=== PATIENT | female | born 1995 | race Caucasian/White ===

== ENCOUNTER 2016-12-21 21:23 | Emergency (ER) | payer BC ==
[2016-12-21 21:36] VITALS: BP 137/67
[2016-12-21] MEDS ORDERED: Nitrofurantoin Macrocrystals* 50 MG CAP PO ONE (22:14)
[2016-12-21] MEDS ORDERED: Phenazopyridine 200 mg (NF) 200 MG TAB PO ONE (22:14)
[2016-12-21] MEDS ORDERED: Phenazopyridine TAB* 100 MG PO ONE (22:24)
--- NOTE | 2016-12-21 22:24 | UC ---
Complaint Female HPI - HPI Summary HPI Summary: UTI sx starting last night, worsening today: dysuria, frequency, urgency. Denies blood in urine, fever, back pain, or vomiting. Has had 1 UTI in the past , this feels the same. - History Of Current Complaint Chief Complaint: UCGU Stated Complaint: POSS UTI Time Seen by Provider: 12/21/16 21:59 Hx Obtained From: Patient Hx Last Menstrual Period: does not get PCOS ?: No Onset/Duration: Gradual Onset, Lasting Hours Timing: Constant Severity Initially: Mild Severity Currently: Moderate Character: Burning Aggravating Factor(s): Urination Associated Signs And Symptoms: Negative: Fever, Vaginal Bleeding/Discharge, Vaginal Discharge, Nausea, Vomiting(# Of Episodes =) - Allergies/Home Medications Allergies/Adverse Reactions: Allergies Allergy/AdvReac Type Severity Reaction Status Date / Time No Known Allergies Allergy Verified 12/21/16 21:37 PMH/Surg Hx/FS Hx/Imm Hx Previously Healthy: Yes - Surgical History Surgical History: None - Family History Known Family History: Positive: Hypertension, Diabetes - Social History Alcohol Use: None Substance Use Type: None Smoking Status (MU): Never Smoked Tobacco - Immunization History Vaccination Up to Date: Yes Review of Systems Constitutional: Negative Skin: Negative Eyes: Negative ENT: Negative Respiratory: Negative Cardiovascular: Negative Gastrointestinal: Negative Genitourinary: Dysuria, Frequency, Urgency Motor: Negative Neurovascular: Negative Musculoskeletal: Negative Neurological: Negative Psychological: Negative All Other Systems Reviewed And Are Negative: Yes Physical Exam Triage Information Reviewed: Yes Appearance: Obese Vital Signs: Initial Vital Signs Temp 98.0 F 12/21/16 21:33 Pulse 84 12/21/16 21:33 Resp 20 12/21/16 21:33 BP 137/67 12/21/16 21:33 Pulse Ox 99 12/21/16 21:33 Vital Signs Reviewed: Yes Eye Exam: Normal Eyes: Positive: Conjunctiva Clear ENT Exam: Normal ENT: Positive: Normal ENT inspection, Hearing grossly normal, Pharynx normal, TMs normal Dental Exam: Normal Neck exam: Normal Neck: Positive: Supple Respiratory Exam: Normal Respiratory: Positive: Chest non-tender, Lungs clear, Normal breath sounds, No respiratory distress, No accessory muscle use Cardiovascular Exam: Normal Cardiovascular: Positive: RRR Abdomen Description: Positive: No Organomegaly, Soft. Negative: CVA Tenderness (R), CVA Tenderness (L) Bowel Sounds: Positive: Present Musculoskeletal Exam: Normal Neurological Exam: Normal Neurological: Positive: Alert Psychological Exam: Normal Skin Exam: Normal Complaint Female Dx - Differential Dx/Diagnosis Provider Diagnoses: UTI Discharge - Discharge Plan Condition: Stable Disposition: HOME Prescriptions: Nitrofurantoin Monohyd Macro [Macrobid] 100 mg PO BID #10 cap Patient Education Materials: Urinary Tract Infection in Women (ED) Referrals: Donovan Espitia MD [Primary Care Provider] - Additional Instructions: Call or return if you have persistent or recurrent pain. You should see your primary care provider if you have symptoms that are not alleviated by antibiotics.
--- NOTE | 2016-12-24 12:55 | UC ---
Progress - Progress Note Progress Note: call patient advise no evidence of UTI by culture--If sx are resolved may stop antibiodics should sx continue follow with pcp or return to urgent care for further evaluation
== END 2016-12-21 22:31 | disposition home or self-care (01) ==
LOC: UCEAST 21:23
DX: N39.0 Urinary tract infection, site not specified (principal)
CPT/HCPCS: 81003; 84702; 87086; 99212; A9270-GY; G0463

== ENCOUNTER 2018-10-20 11:01 | Emergency (ER) | payer BC ==
[2018-10-20 12:58] VITALS: BP 118/64
--- NOTE | 2018-10-20 13:11 | UC ---
Throat Pain/Nasal Stephen HPI - HPI Summary HPI Summary: 23-year-old woman comes in with a chief complaint of upper respiratory tract infection symptoms for 3 days. She did minimal rhinorrhea she does have sore throat she has a cough with some sputum production. No wheezing no chest congestion. No fevers. She has not tried any [id number] medications. Her mother who lives in the same household has been diagnosed with bronchitis it is on an antibiotic at this time. - History of Current Complaint Chief Complaint: UCGeneralIllness Stated Complaint: COUG,SORE THROAT Time Seen by Provider: 10/20/18 12:54 Hx Last Menstrual Period: does not get PCOS Pain Intensity: 2 - Allergies/Home Medications Allergies/Adverse Reactions: Allergies Allergy/AdvReac Type Severity Reaction Status Date / Time No Known Allergies Allergy Verified 10/20/18 12:55 Home Medications: Home Medications Metformin SUSP (NF)* [Riomet SUSP (NF)*] 10 ml PO ONCE 10/20/18 [History Confirmed 10/20/18] PMH/Surg Hx/FS Hx/Imm Hx Previously Healthy: Yes Endocrine History: Diabetes - Surgical History Surgical History: None - Family History Known Family History: Positive: Hypertension, Diabetes - Social History Alcohol Use: Occasionally Substance Use Type: Marijuana Smoking Status (MU): Never Smoked Tobacco - Immunization History Vaccination Up to Date: Yes Review of Systems All Other Systems Reviewed And Are Negative: Yes Constitutional: Positive: Negative Skin: Positive: Negative Eyes: Positive: Negative ENT: Positive: Sore Throat, Nasal Discharge Respiratory: Positive: Cough Cardiovascular: Positive: Negative Gastrointestinal: Positive: Negative Motor: Positive: Negative Neurovascular: Positive: Negative Musculoskeletal: Positive: Negative Neurological: Positive: Negative Psychological: Positive: Negative Is Patient Immunocompromised?: No Physical Exam Triage Information Reviewed: Yes Appearance: No Pain Distress, Well-Nourished, Ill-Appearing - MILD Vital Signs: Initial Vital Signs Temp 98.4 F 10/20/18 12:53 Pulse 96 10/20/18 12:53 Resp 18 10/20/18 12:53 BP 118/64 10/20/18 12:53 Pulse Ox 98 10/20/18 12:53 Vital Signs Reviewed: Yes Eye Exam: Normal Eyes: Positive: Conjunctiva Clear ENT: Positive: Pharyngeal erythema, Nasal congestion, Nasal drainage, TMs normal Neck: Positive: Supple Respiratory: Positive: Lungs clear, Normal breath sounds, No respiratory distress Cardiovascular: Positive: RRR Musculoskeletal Exam: Normal Musculoskeletal: Positive: Strength Intact, ROM Intact Neurological: Positive: Alert Psychological: Positive: Age Appropriate Behavior Skin Exam: Normal Throat Pain/Nasal Course/Dx - Course Course Of Treatment: DISCUSSED VIRAL VERSES BACTERIAL INFECTION AND THE ROLE OF ANTIBIOTICS. THE PATIENT WISHES TO BE ON ANTIBIOTICS AT THIS TIME. - Differential Dx/Diagnosis Provider Diagnosis: Upper respiratory infection Discharge - Sign-Out/Discharge Documenting (check all that apply): Patient Departure All imaging exams completed and their final reports reviewed: No Studies - Discharge Plan Condition: Stable Disposition: HOME Prescriptions: Azithromyxin MANISHA (NF) [Z-Manisha (Zithromax) 250 mg tabs #6] 2 tab PO .TODAY, THEN 1 DAILY #6 tab Benzonatate CAP* [Tessalon 100 MG CAP*] 100 mg PO TID PRN #20 cap PRN Reason: Cough Patient Education Materials: Upper Respiratory Infection (ED) Forms: *School Release Referrals: Donovan Espitia MD [Primary Care Provider] - Additional Instructions: FOLLOW UP WITH YOUR DOCTOR IF NOT COMPLETELY IMPROVED. GET REEVALUATED SOONER FOR WORSENING OF YOUR CONDITION OR QUESTIONS OR CONCERNS. - Billing Disposition and Condition Condition: STABLE Disposition: Home
== END 2018-10-20 13:17 | disposition home or self-care (01) ==
LOC: UCCORT 11:01
DX: J06.9 Acute upper respiratory infection, unspecified (principal); E11.9 Type 2 diabetes mellitus without complications; Z79.84 Long term (current) use of oral hypoglycemic drugs
CPT/HCPCS: 99212; G0463

== ENCOUNTER 2018-11-03 11:45 | Emergency (ER) | payer BC ==
[2018-11-03 12:47] VITALS: BP 121/76
--- NOTE | 2018-11-03 13:03 | UC ---
Abdominal Pain Female HPI - HPI Summary HPI Summary: 23 -year-old female who is on metformin for PCL last. She started that approximately 6 weeks ago. She states that whenever she takes metformin and shortly thereafter she will have one or 2 bouts of diarrhea. She stop the metformin for 2 days and had no diarrhea. Today she took it and states she had diarrhea for approximately one hour and some epigastric pain. She states the epigastric pain is better. Mild nausea which has passed. She denies any fever or chills. No vomiting. They did call her primary care provider who sent her here stating this could be a gallbladder problem. - History of Current Complaint Chief Complaint: UCRespiratory Stated Complaint: DIARRHEA,CRAMPS Time Seen by Provider: 11/03/18 12:48 Hx Obtained From: Patient, Family/Cash Applications Analyst Hx Last Menstrual Period: PERIODS ARE IRREG. SPOTTING NOW ?: No Onset/Duration: Gradual Onset - Following her dose of metformin. Timing: Intermittent Episodes Lasting: - She states she had diarrhea lasting probably one hour. Severity Initially: Moderate Severity Currently: Mild - Patient states the pain is almost resolved. Pain Intensity: 2 Location: Epigastric Radiates: No Character: Aching, Cramping Aggravating Factor(s): Other: - Metformin. Alleviating Factor(s): Bowel Movement Associated Signs and Symptoms: Positive: Negative Allergies/Adverse Reactions: Allergies Allergy/AdvReac Type Severity Reaction Status Date / Time No Known Allergies Allergy Verified 11/03/18 12:36 Home Medications: Home Medications Ibuprofen TAB* [Advil TAB*] 200 mg PO Q6H PRN 11/03/18 [History Confirmed ] Metformin SUSP (NF)* [Riomet SUSP (NF)*] 10 ml PO DAILY 11/03/18 [History Confirmed 11/03/18] PMH/Surg Hx/FS Hx/Imm Hx Previously Healthy: Yes GI/ History: Other - PCOS - Surgical History Surgical History: None - Family History Known Family History: Positive: Non-Contributory - Social History Occupation: Student Alcohol Use: Occasionally Substance Use Type: None Smoking Status (MU): Never Smoked Tobacco Review of Systems All Other Systems Reviewed And Are Negative: Yes Gastrointestinal: Positive: Abdominal Pain - Epigastric pain today after taking her metformin along with several bouts of diarrhea lasting over one hour., Diarrhea, Nausea - Nausea which subsided. Is Patient Immunocompromised?: No Physical Exam Triage Information Reviewed: Yes Appearance: Well-Appearing, No Pain Distress, Well-Nourished Vital Signs: Initial Vital Signs Temp 99.1 F 11/03/18 12:38 Pulse 84 11/03/18 12:38 Resp 20 11/03/18 12:38 BP 121/76 11/03/18 12:38 Pulse Ox 99 11/03/18 12:38 Vital Signs Reviewed: Yes ENT: Positive: Normal ENT inspection, Hearing grossly normal, Pharynx normal, TMs normal, Uvula midline Neck exam: Normal Neck: Positive: Supple, Nontender, No Lymphadenopathy Respiratory: Positive: Lungs clear, Normal breath sounds, No respiratory distress, No accessory muscle use Cardiovascular: Positive: RRR, No Murmur, Pulses Normal, Brisk Capillary Refill Abdomen Description: Positive: No Organomegaly, Soft. Negative: CVA Tenderness (R), CVA Tenderness (L), Distended, Guarding, Hepatomegaly, McBurney's Point Tenderness, Splenomegaly - Patient has minimal discomfort in the epigastric area with firm palpation. No rigidity, rebound or guarding. Bowel Sounds: Positive: Present Musculoskeletal: Positive: Strength Intact, ROM Intact Neurological: Positive: Alert, Muscle Tone Normal Abd Pain Female Course/Dx - Course Course Of Treatment: The patient has been comfortable here and states that her epigastric pain has improved. I gave her the option of follow-up in the emergency room or waiting to see if it resolved as the day goes on. She opted to wait and if the pain worsens she'll go to the emergency room. I advised her to not take her metformin tomorrow and to call her primary care provider today and discuss the since she has had a daily occurrence of diarrhea since she has started the metformin. She is agreeable to this plan of action. She is to avoid fatty foods or spicy foods today. - Differential Dx/Diagnosis Provider Diagnosis: Abdominal pain Discharge - Sign-Out/Discharge Documenting (check all that apply): Patient Departure All imaging exams completed and their final reports reviewed: No Studies - Discharge Plan Condition: Fair Disposition: HOME Patient Education Materials: Acute Abdominal Pain (DC) Referrals: Donovan Espitia MD [Primary Care Provider] - Additional Instructions: Increase fluids, call your provider and have a discussion about the metformin. If the abdominal pain worsens and or if you start running a fever you are to go to the emergency room for further evaluation and treatment. Avoid spicy or fatty foods today. - Billing Disposition and Condition Condition: FAIR Disposition: Home - Attestation Statements Provider Attestation: I was available for consult. This patient was seen by the JEOVANY. The patient was not presented to, seen by, or examined by me. -Aida
== END 2018-11-03 13:08 | disposition home or self-care (01) ==
LOC: MERGE 11:45 → UCCORT 11:45 → EDBD 11:45 → UCCORT 13:08
DX: R10.13 Epigastric pain (principal)
CPT/HCPCS: 99201; G0463

== ENCOUNTER 2019-04-29 20:40 | Emergency (ER) | payer BC ==
[2019-04-29 20:54] VITALS: BP 130/88
--- NOTE | 2019-04-29 21:00 | UC ---
Complaint Female HPI - HPI Summary HPI Summary: 23 y/o female presents to the urgent care c/o frequency and burning on urination and a feeling of not completely emptying since Saturday04/25/2019. Pt reports pain with urination is 5/10 and she noticed some blood in her toilet paper. She feels anxious now since she couldn't sleep last night well due to her frequency on urination. LMP; 03/17/2019 w/ irregular periods since she has PMHX of PCOS. Pt denies pelvic pain, flank pain, fever, abdominal pain, lower back pain, SOB, chest pain, dizziness, DOMINIQUE, N/V/D, vaginal discharge or Hx of STD 's. Pt has been drinking fluids and has not taken any medication to alleviate symptoms. - History Of Current Complaint Chief Complaint: UCGU Stated Complaint: URINARY Time Seen by Provider: 04/29/19 20:57 Hx Obtained From: Patient Hx Last Menstrual Period: early last month Onset/Duration: Gradual Onset, Lasting Days - 3 days, Still Present, Worse Since - last night Timing: Intermittent, Lasting Seconds Severity Initially: Mild Severity Currently: Moderate Pain Intensity: 5 Pain Scale Used: 0-10 Numeric Character: Burning Aggravating Factor(s): Urination Associated Signs And Symptoms: Positive: Negative. Negative: Fever, Back Pain, Vaginal Bleeding/Discharge, Vaginal Discharge, Nausea, Vomiting(# Of Episodes =) , Genital Swelling Related Hx: Similar Episode/Dx as: - UTI - Risk Factors Ectopic Risk Factor: Negative - Allergies/Home Medications Allergies/Adverse Reactions: Allergies Allergy/AdvReac Type Severity Reaction Status Date / Time No Known Allergies Allergy Verified 04/29/19 20:54 PMH/Surg Hx/FS Hx/Imm Hx Previously Healthy: Yes Other GI/ History: PCOS - Surgical History Surgical History: None - Family History Known Family History: Positive: Hypertension, Diabetes - Social History Occupation: Employed Full-time Lives: With Family Alcohol Use: Weekly Substance Use Type: None Smoking Status (MU): Never Smoked Tobacco - Immunization History Vaccination Up to Date: Yes Review of Systems All Other Systems Reviewed And Are Negative: Yes Constitutional: Positive: Negative Skin: Positive: Negative Eyes: Positive: Negative ENT: Positive: Negative Respiratory: Positive: Negative Cardiovascular: Positive: Negative Gastrointestinal: Positive: Negative Genitourinary: Positive: Dysuria, Hematuria, Frequency, Urgency Motor: Positive: Negative Neurovascular: Positive: Negative Musculoskeletal: Positive: Negative Neurological: Positive: Negative Psychological: Positive: Negative Is Patient Immunocompromised?: No Physical Exam - Summary Physical Exam Summary: VITAL SIGNS: Reviewed. GENERAL: Patient is a well developed and nourished female who is sitting comfortable in the examining table. Patient is not in any acute respiratory distress. HEAD AND FACE: No signs of trauma. No ecchymosis, hematomas or skull depressions. No sinus tenderness. EYES: PERRLA, EOMI x 2, No injected conjunctiva, clear watery eyes, no nystagmus. No photophobia. EARS: Hearing grossly intact. Ear canals and tympanic membranes are within normal limits. MOUTH: pharynx with no erythema, no exudates,no palatal petechiae. no B/L tonsillar enlargement Uvula in midline. NECK: Supple, trachea is midline, no lymphadenopathy, no JVD, no carotid bruit, no c-spine tenderness, neck with full ROM. CHEST: Symmetric, no tenderness at palpation LUNGS: Clear to auscultation bilaterally. No wheezing or crackles. CVS: Regular rate and rhythm, S1 and S2 present, no murmurs or gallops appreciated. ABDOMEN: Soft, non-tender. No signs of distention. No rebound no guarding, and no masses palpated. Bowel sounds are normal. BACK:no scoliosis or lesions, non tender to palpation, No B/L CVA tenderness EXTREMITIES: FROM in all major joints, no edema, no cyanosis or clubbing. NEURO: Alert and oriented x 3. No acute neurological deficits. Speech is normal and follows commands. SKIN: Dry and warm Triage Information Reviewed: Yes Vital Signs: Initial Vital Signs Temp 98.6 F 04/29/19 20:49 Pulse 118 04/29/19 20:49 Resp 18 04/29/19 20:49 BP 130/88 04/29/19 20:49 Pulse Ox 98 04/29/19 20:49 Complaint Female Dx - Course Course Of Treatment: 23 y/o female presents to the urgent care c/o frequency and burning on urination and a feeling of not completely emptying since Saturday04/25/2019. Pt reports pain with urination is 5/10 and she noticed some blood in her toilet paper. She feels anxious now since she couldn't sleep last night well due to her frequency on urination. LMP; 03/17/2019 w/ irregular periods since she has PMHX of PCOS. Pt denies pelvic pain, flank pain, fever, abdominal pain, lower back pain, SOB, chest pain, dizziness, DOMINIQUE, N/V/D, vaginal discharge or Hx of STD 's. Pt has been drinking fluids and has not taken any medication to alleviate symptoms. Hx obtained. Pt is hemodynamically stable, A&OX3, Vitals: WNL except for HR 115bpm. Pt states she is anxious and feels well other than the urinary symptoms. UA and test ordered. UA results: Blood 3+, Leukoesterase 2+ . test: negative. Pt Rx Nitrofurantoin PO x 7 days. Pyridium 100mg PO TID x 2 days. First dose given at the clinic by nurse rosario. Advised to increase fluid intake. Urine sent for culture if any abnormality Pt will be notified for further treatment. Pt advised If symptoms do not improve to return to the urgent care or f/u with PCP. However if she feels SOB, chest pain , dizziness or severe DOMINIQUE to go inmediately to the ER for further management. Pt understood and agreed w/ plan of care. Left the clinic ambulating. - Differential Dx/Diagnosis Differential Diagnosis/HQI/PQRI: Cervicitis, , Renal Colic, Sexually Transmitted Disease, Ureteral Stone, Urinary Tract Infection Provider Diagnosis: UTI (urinary tract infection), Dysuria Discharge ED - Sign-Out/Discharge Documenting (check all that apply): Patient Departure - D/C home All imaging exams completed and their final reports reviewed: No Studies - Discharge Plan Condition: Stable Disposition: HOME Prescriptions: Nitrofurantoin Macrocrystals* [Macrodantin 100 mg*] 100 mg PO BID #13 cap Phenazopyridine TAB* [Pyridium 100 mg TAB*] 100 mg PO TID #5 tab Patient Education Materials: Urinary Tract Infection in Women (ED) Referrals: Donovan Espitia MD [Primary Care Provider] - 3 Days Additional Instructions: 1- Please take Macrobid 100mg PO x 7 days. Pyridium 100 mg PO TID x 2 days to alleviate urinary symptoms. Increase increase fluid intake. drink cranberry juice. First dose given at the clinic today 2-Urine sent for culture if any abnormality, you will be notified for further treatment. 3-If symptoms do not improve please return to the urgent care or f/u with her PCP. - Billing Disposition and Condition Condition: STABLE Disposition: Home
[2019-04-29] MEDS ORDERED: Nitrofurantoin Macrocrystals* 50 MG CAP PO ONE (21:17)
[2019-04-29] MEDS ORDERED: Phenazopyridine TAB* 100 MG PO ONE (21:18)
== END 2019-04-29 21:31 | disposition home or self-care (01) ==
LOC: UCCORT 20:40
DX: N39.0 Urinary tract infection, site not specified (principal); R30.0 Dysuria; E28.2 Polycystic ovarian syndrome
CPT/HCPCS: 81003; 84702; 87086; 99212; A9270-GY; G0463

== ENCOUNTER 2019-04-30 13:19 | Emergency (ER) | payer BC ==
[2019-04-30 14:03] VITALS: BP 129/89
--- NOTE | 2019-04-30 14:30 | UC ---
Lower Extremity/Ankle HPI - HPI Summary HPI Summary: Pt presents with c/o left great toe pain, swelling and small amount of discharge. Pt states that she stubbed her toe last night and felt that her left great toe "peeled all the way back". Pt is states toe is painful and is concerned that toenail is infected and not attached. - History of Current Complaint Chief Complaint: UCLowerExtremity Stated Complaint: LT FOOT BIG TOE PAIN Time Seen by Provider: 04/30/19 14:24 Hx Obtained From: Patient Hx Last Menstrual Period: early last month ?: No Onset/Duration: Sudden Onset, Still Present Severity Initially: Moderate Severity Currently: Mild Pain Intensity: 1 Aggravating Factor(s): Standing, Ambulation Alleviating Factor(s): Rest Able to Bear Weight: Yes - Risk Factors Gout Risk Factors: Obesity DVT Risk Factors: Negative Septic Arthritis Risk Factor: Negative - Allergies/Home Medications Allergies/Adverse Reactions: Allergies Allergy/AdvReac Type Severity Reaction Status Date / Time No Known Allergies Allergy Verified 04/30/19 14:03 PMH/Surg Hx/FS Hx/Imm Hx Previously Healthy: Yes - Surgical History Surgical History: None - Family History Known Family History: Positive: Hypertension, Diabetes, Non-Contributory - Social History Occupation: Student - [employer] Lives: With Family Alcohol Use: Weekly Substance Use Type: None Smoking Status (MU): Never Smoked Tobacco Have You Smoked in the Last Year: No - Immunization History Vaccination Up to Date: Yes Review of Systems All Other Systems Reviewed And Are Negative: Yes Constitutional: Positive: Negative Skin: Positive: Bruising - left great toe. Toe nail is attached. Eyes: Positive: Negative ENT: Positive: Negative Respiratory: Positive: Negative Cardiovascular: Positive: Negative Gastrointestinal: Positive: Negative Genitourinary: Positive: Negative Motor: Positive: Negative Neurovascular: Positive: Negative Musculoskeletal: Positive: Edema - mild swelling left great toe Neurological: Positive: Negative Psychological: Positive: Negative Is Patient Immunocompromised?: No Physical Exam Triage Information Reviewed: Yes Appearance: Well-Appearing Vital Signs: Initial Vital Signs Temp 98.1 F 04/30/19 13:58 Pulse 88 04/30/19 13:58 Resp 16 04/30/19 13:58 BP 129/89 04/30/19 13:58 Pulse Ox 98 04/30/19 13:58 Vital Signs Reviewed: Yes Eye Exam: Normal ENT Exam: Normal Dental Exam: Normal Neck exam: Normal Respiratory: Positive: No respiratory distress Musculoskeletal: Positive: Edema @ - left great toe Neurological Exam: Normal Psychological Exam: Normal Skin Exam: Other - slight bruising left great toe left great toe Toe nail is attached. Lower Extremity Course/Dx - Course Course Of Treatment: pt had full ROM to left great toe - Differential Dx/Diagnosis Differential Diagnosis/HQI/PQRI: Contusion, Fracture (Closed), Infection Provider Diagnosis: Contusion of left great toe with damage to nail Discharge ED - Sign-Out/Discharge Documenting (check all that apply): Patient Departure All imaging exams completed and their final reports reviewed: No Studies - Discharge Plan Condition: Stable Disposition: HOME Prescriptions: Cephalexin CAP* [Keflex 500 CAP*] 500 mg PO QID #28 cap Patient Education Materials: Foot Contusion (ED), Nail Avulsion (ED) Referrals: Donovan Espitia MD [Primary Care Provider] - If Needed - Billing Disposition and Condition Condition: STABLE Disposition: Home
== END 2019-04-30 14:44 | disposition home or self-care (01) ==
LOC: UCCORT 13:19
DX: S90.212A Contusion of left great toe with damage to nail, initial encounter (principal); X58.XXXA Exposure to other specified factors, initial encounter; Y92.9 Unspecified place or not applicable
CPT/HCPCS: 99212; G0463

== ENCOUNTER 2019-08-22 13:37 | Emergency (ER) | payer BC ==
[2019-08-22 14:17] VITALS: BP 109/72
--- NOTE | 2019-08-22 14:35 | UC ---
Complaint Female HPI - HPI Summary HPI Summary: Pt presents with c/o sudden onset of urinary symptoms of frequency, urgency and dysuria that began this morning. - History Of Current Complaint Chief Complaint: UCGU Stated Complaint: POSSIBLE UTI Time Seen by Provider: 08/22/19 14:08 Hx Obtained From: Patient Hx Last Menstrual Period: early last month ?: No Onset/Duration: Sudden Onset, Still Present Timing: Constant Severity Initially: Mild Severity Currently: Mild Pain Intensity: 2 Character: Dull, Burning Aggravating Factor(s): Urination Associated Signs And Symptoms: Positive: Negative - Risk Factors Ectopic Risk Factor: Negative Ovarian Torsion Risk Factor: Reproductive Age - Allergies/Home Medications Allergies/Adverse Reactions: Allergies Allergy/AdvReac Type Severity Reaction Status Date / Time No Known Allergies Allergy Verified 08/22/19 14:17 PMH/Surg Hx/FS Hx/Imm Hx Previously Healthy: Yes - Surgical History Surgical History: None - Family History Known Family History: Positive: Hypertension, Diabetes, Non-Contributory - Social History Occupation: Student - [employer] Lives: Dormitory/Roommates Alcohol Use: Occasionally Substance Use Type: Marijuana Substance Use Comment - Amount & Last Used: occasionally Smoking Status (MU): Never Smoked Tobacco Have You Smoked in the Last Year: No - Immunization History Vaccination Up to Date: Yes Review of Systems All Other Systems Reviewed And Are Negative: Yes Constitutional: Positive: Negative Skin: Positive: Negative Eyes: Positive: Negative ENT: Positive: Negative Respiratory: Positive: Negative Cardiovascular: Positive: Negative Gastrointestinal: Positive: Negative Genitourinary: Positive: Dysuria, Frequency, Urgency Motor: Positive: Negative Neurovascular: Positive: Negative Musculoskeletal: Positive: Negative Neurological/Mental Status: Positive: Negative Psychological: Positive: Negative Is Patient Immunocompromised?: No Physical Exam Triage Information Reviewed: Yes Appearance: Well-Appearing Vital Signs: Initial Vital Signs Temp 99.0 F 08/22/19 14:13 Pulse 73 08/22/19 14:13 Resp 18 08/22/19 14:13 BP 109/72 08/22/19 14:13 Pulse Ox 100 08/22/19 14:13 Vital Signs Reviewed: Yes Eye Exam: Normal ENT: Positive: Hearing grossly normal Dental Exam: Normal Neck exam: Normal Respiratory Exam: Normal Cardiovascular Exam: Normal Abdominal Exam: Normal Abdomen Description: Positive: Nontender Musculoskeletal Exam: Normal Neurological Exam: Normal Psychological Exam: Normal Skin Exam: Normal Complaint Female Dx - Differential Dx/Diagnosis Differential Diagnosis/HQI/PQRI: Sexually Transmitted Disease, Urinary Tract Infection Provider Diagnosis: UTI (urinary tract infection) Discharge ED - Sign-Out/Discharge Documenting (check all that apply): Patient Departure All imaging exams completed and their final reports reviewed: No Studies - Discharge Plan Condition: Stable Disposition: HOME Prescriptions: Cephalexin CAP* [Keflex 500 CAP*] 500 mg PO Q12H #14 cap Phenazopyridine TAB* [Pyridium 100 mg TAB*] 100 mg PO Q8H #3 tab Patient Education Materials: Urinary Tract Infection in Women (ED) Referrals: Donovan Espitia MD [Primary Care Provider] - If Needed - Billing Disposition and Condition Condition: STABLE Disposition: Home
== END 2019-08-22 14:45 | disposition home or self-care (01) ==
LOC: UCCORT 13:37
DX: N39.0 Urinary tract infection, site not specified (principal)
CPT/HCPCS: 81003; 87086; 99212; G0463